=== PATIENT | female | born 2000 | race Caucasian/White ===

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

== ENCOUNTER → 2022-07-08 | Outpatient (CLI) | payer OTHER ==
[~2022-07-08] MED LIST changes: +Prednisone20 MG PO
== END | disposition home or self-care (01) ==
LOC: LAB SHORT 14:16 → LAB 14:16
DX: J02.9 Acute pharyngitis, unspecified (principal)
CPT/HCPCS: 87081

== ENCOUNTER 2022-09-03 08:05 | Day surgery (SDC) | payer OTHER ==
[2022-09-03] VITALS (13 sets, daily range): BP systolic 107–136; BP diastolic 64–85
[~2022-09-03] VITALS: Ht 157.5 cm; Wt 92.4 kg
--- NOTE | 2022-09-03 13:09 | NUR ---
DISCHARGE NOTE PT A&OX4, BREATHING RA, VSS, NO ACUTE CONCERNS OR COMPLAINTS. PT TOLERATING PO FLUIDS AND FOOD. FAMILY AT BEDSIDE. PT DRESSED C SISTERS ASSISTANCE AND RN AT BEDSIDE. TINA DRAIN DRAINING SCANT AMOUNT OF SANGUINOUS DRAINAGE, SECURED TO PANTS. DRAIN CARE DISCHARGE INSTRUCTIONS COVERED AND DRAIN EMPTYING SHOWN TO PT AND SISTER. Discharge instructions reviewed with patient. Patient verbalizes understanding. Copy given to patient to take home. Dressing to procedure site clean, dry, intact with no visible drainage, swelling, erythema or bruising noted. Discharged via wheelchair to private car for ride home.
== END 2022-09-03 13:10 | disposition home or self-care (01) ==
LOC: ORSCMMR 08:05 → ORD 09:00 → ORSCMMR 09:00
PROVIDERS: Surgery
PROC: 0HX8XZZ Transfer Buttock Skin, External Approach (ICD-10-PCS; principal; 2022-09-03 09:00)
PROC: 0JB90ZZ Excision of Buttock Subcutaneous Tissue and Fascia, Open Approach (ICD-10-PCS; principal; 2022-09-03 09:00)
DX: L05.91 Pilonidal cyst without abscess (principal); J45.909 Unspecified asthma, uncomplicated; K21.9 Gastro-esophageal reflux disease without esophagitis; Z79.899 Other long term (current) drug therapy; E66.9 Obesity, unspecified; Z68.37 Body mass index [BMI] 37.0-37.9, adult
CPT/HCPCS: 84703; 88304; A9270; J0295; J1100; J1170; J1885; J2250; J2405; J2704; J3010; J7120

== ENCOUNTER 2022-11-27 18:43 | Emergency (ER) | payer OTHER ==
[~2022-11-27] VITALS: Ht 157.5 cm; Wt 90.7 kg
[2022-11-27 19:19] VITALS: BP 134/101
[2022-11-27 19:41] LABS: BASOPHILS ABSOLUTE AUTO 0.04 K/mm3 (0.00-0.23); BASOPHILS PERCENT AUTO 0 % (0-2); EOSINOPHILS ABSOLUTE AUTO 0.44 K/mm3 (0.00-0.68); EOSINOPHILS PERCENT AUTO 4 % (0-6); Hematocrit 37.5 % (33.0-51.0); IMMATURE GRAN ABSOLUTE AUTO 0.04 K/mm3 (0.00-0.10); IMMATURE GRAN PERCENT AUTO 0 % (0-1); LYMPHOCYTES ABSOLUTE AUTO 3.83 K/mm3 (0.84-5.20); LYMPHOCYTES PERCENT AUTO 31 % (21-46); MONOCYTES ABSOLUTE AUTO 0.57 K/mm3 (0.16-1.47); MONOCYTES PERCENT AUTO 5 % (4-13); Mean Corpuscular Volume 72 fL (80-100); Mean Platelet Volume 9.9 fL (9.1-12.4); NEUTROPHILS ABSOLUTE AUTO 7.27 K/mm3 (1.96-9.15); NEUTROPHILS PERCENT AUTO 60 % (41-73); Platelet Count 495 K/mm3 (150-400); RDW Coefficient Variation 16.4 % (11.7-14.2); RDW Standard Deviation 41.9 fL (35.1-46.3); Red Blood Cell Count 5.21 M/mm3 (3.80-5.20); White Blood Cell Count 12.19 K/mm3 (4.00-11.30)
[2022-11-27 20:03] LABS: Albumin, Blood 4.2 g/dL (3.4-5.0); Bilirubin, Total 0.3 mg/dL (0.1-1.0); Bun/Creatinine Ratio 19.1 (12.0-20.0); Calcium, Blood 10.4 mg/dL (8.5-10.1); Creatinine, Blood 0.63 mg/dL (0.40-1.00); Potassium, Blood 4.1 mmol/L (3.5-5.5); Total Protein, Blood 8.2 g/dL (6.4-8.2)
== END 2022-11-27 23:39 | disposition home or self-care (01) ==
LOC: ER 18:43
PROVIDERS: Student in an Organized Health Care Education/Training Program
DX: K92.1 Melena (principal); J45.909 Unspecified asthma, uncomplicated
CPT/HCPCS: 80053; 84703; 85025; 86850; 86900; 86901; 99283

== ENCOUNTER → 2022-12-07 | Outpatient (CLI) | payer OTHER ==
[2022-12-07 16:35] LABS: BASOPHILS ABSOLUTE AUTO 0.06 K/mm3 (0.00-0.23); BASOPHILS PERCENT AUTO 1 % (0-2); EOSINOPHILS ABSOLUTE AUTO 0.44 K/mm3 (0.00-0.68); EOSINOPHILS PERCENT AUTO 4 % (0-6); Hematocrit 38.2 % (33.0-51.0); Hemoglobin 12.2 g/dL (11.5-16.0); IMMATURE GRAN ABSOLUTE AUTO 0.03 K/mm3 (0.00-0.10); IMMATURE GRAN PERCENT AUTO 0 % (0-1); LYMPHOCYTES ABSOLUTE AUTO 2.51 K/mm3 (0.84-5.20); LYMPHOCYTES PERCENT AUTO 25 % (21-46); MONOCYTES ABSOLUTE AUTO 0.57 K/mm3 (0.16-1.47); MONOCYTES PERCENT AUTO 6 % (4-13); Mean Corpuscular HGB Conc 31.9 g/dL (31.5-36.5); Mean Corpuscular Volume 72 fL (80-100); Mean Platelet Volume 10.1 fL (9.1-12.4); NEUTROPHILS PERCENT AUTO 65 % (41-73); Platelet Count 468 K/mm3 (150-400); RDW Coefficient Variation 16.1 % (11.7-14.2); RDW Standard Deviation 41.1 fL (35.1-46.3); White Blood Cell Count 10.21 K/mm3 (4.00-11.30)
== END | disposition home or self-care (01) ==
LOC: LAB SHORT 15:25 → LAB 15:25
PROVIDERS: Physician Assistant
DX: R10.9 Unspecified abdominal pain (principal)
CPT/HCPCS: 85025

== ENCOUNTER → 2023-08-04 | Outpatient (CLI) | payer OTHER ==
[2023-08-04 19:38] LABS: Percent Saturation 3.6 % (15.0-50.0)
[2023-08-04 20:01] LABS: Thyroid Stimulating Hormone 1.85 uIU/mL (0.360-4.800)
== END ==
LOC: LAB SHORT 16:40 → LAB 16:40
PROVIDERS: Family Medicine
DX: E55.9 Vitamin D deficiency, unspecified (principal); R53.83 Other fatigue; Z79.899 Other long term (current) drug therapy
CPT/HCPCS: 36415; 82306; 82607; 82728; 82746; 83540; 83550; 84443

== ENCOUNTER → 2023-09-08 | Outpatient (CLI) | payer OTHER ==
[~2023-09-08] MED LIST changes: +FLUT1DIS2 INH; +MONT10T PO; +OMEP20ER PO; +VITAMIN D310 MC4 PO; +Vitamin B-12100 MCG PO
== END ==
LOC: LAB SHORT 15:32 → LAB 15:32
PROVIDERS: Family Medicine
DX: Z01.419 Encounter for gynecological examination (general) (routine) without abnormal findings (principal)
CPT/HCPCS: G0123

== ENCOUNTER 2023-10-01 10:25 | Day surgery (SDC) | payer OTHER ==
[~2023-10-01] VITALS: Ht 157.5 cm; Wt 89.0 kg
[~2023-10-01 10:25] MED LIST changes: -FLUT1DIS2 INH; -MONT10T PO; -OMEP20ER PO; +Ropivacaine 0.5% HCl/Pf 5 MG/ML 20ML VIAL ONE; -VITAMIN D310 MC4 PO; -Vitamin B-12100 MCG PO
[2023-10-01] MEDS ORDERED: Lactated Ringer's 1,000 ML IV ONE (11:02)
[2023-10-01] MEDS ORDERED: Vitamin B-12100 MCG PO (11:06)
[2023-10-01] MEDS ORDERED: MONT10T PO (11:06)
[2023-10-01] MEDS ORDERED: VITAMIN D310 MC4 PO (11:07)
[2023-10-01] MEDS ORDERED: OMEP20ER PO (11:07)
[2023-10-01] MEDS ORDERED: Flonase 0.05% N16 GM (11:07)
[2023-10-01] MEDS ORDERED: FLUT1DIS2 INH (11:07)
[2023-10-01] MEDS ORDERED: FentaNYL Citrate 50 MCG/ML 2 ML Injection ONE (11:45)
[2023-10-01] MEDS ORDERED: propofoL 40 ML IV ONE (11:45)
[2023-10-01] MEDS ORDERED: Sugammadex Sodium 200 MG/2ML SDV (100 MG/ML) ONE (11:45)
[2023-10-01] MEDS ORDERED: Dexamethasone Sod Phos 10 MG/ML 1ML VIAL ONE (11:46)
[2023-10-01] MEDS ORDERED: Phenylephrine HCl 100 MCG/ML-NS 10MLSYR (1MG/10ML) ONE ×2 (11:46→11:47)
[2023-10-01] MEDS ORDERED: Ondansetron HCl 2 MG / ML 2ML Vial ONE (11:46)
[2023-10-01] MEDS ORDERED: Rocuronium Bromide 10 MG/ML 5ML Injection IV ONE (11:47)
[2023-10-01] MEDS ORDERED: EPINEPhrine HCl 1 MG/ML 1ML Amp XX ONE (12:10)
[2023-10-01] MEDS ORDERED: Ketorolac Tromethamine 30mg Vial ONE (12:29)
[2023-10-01] MEDS ORDERED: Albuterol HFA200 ACT/6.7 GM INH ONE (12:41)
[2023-10-01 13:23] VITALS: BP 134/74
== END 2023-10-01 13:48 | disposition home or self-care (01) ==
LOC: ORSCSDS 10:25
PROVIDERS: Obstetrics & Gynecology
PROC: 0UT74ZZ Resection of Bilateral Fallopian Tubes, Percutaneous Endoscopic Approach (ICD-10-PCS; principal; 2023-10-01 11:45)
DX: Z30.2 Encounter for sterilization (principal); J45.909 Unspecified asthma, uncomplicated; Z79.899 Other long term (current) drug therapy; K21.9 Gastro-esophageal reflux disease without esophagitis; Z68.35 Body mass index [BMI] 35.0-35.9, adult
CPT/HCPCS: 88302; A9270; J0171; J1100; J1885; J2371; J2405; J2704; J2795; J3010